=== PATIENT | male | born 1985 | race African-American/Black ===

== ENCOUNTER 2017-05-15 20:38 | Emergency (ER) | payer OTHER ==
[~2017-05-15] VITALS: Ht 167.6 cm; Wt 71.0 kg
[~2017-05-15 20:38] MED LIST: IBUP-1542 PO
[2017-05-15 20:46] VITALS: Ht 167.6 cm; Wt 71.0 kg
[2017-05-15] MEDS ORDERED: KETOROLAC 15 MG INJ IM STA (21:08)
--- NOTE | 2017-05-15 21:08 | ERD ---
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 Medications Home Meds Active Scripts Diazepam* (Valium*) 5 Mg Tablet, 5 MG PO Q8 for MUSCLE SPASMS, #10 TAB Prov:RICK,GEORGETTE 05/15/17 Naproxen* (Naprosyn*) 500 Mg Tablet, 500 MG PO BID Y for PAIN AND/OR INFLAMMATION, #10 TAB Prov:RICK,GEORGETTE 05/15/17 Ibuprofen* (Motrin*) 600 Mg Tab, 600 MG PO Q6, #20 TAB Prov:SARAH PACHECO PA-C 08/25/15 Allergies Allergies: Coded Allergies: No Known Allergy (Unverified , 01/22/15) PMhx/Soc History of Surgery: No Anesthesia Reaction: No Hx Neurological Disorder: No Hx Respiratory Disorders: Yes (asthma) Hx Cardiac Disorders: No Hx Psychiatric Problems: No Hx Miscellaneous Medical Probl: No Hx Alcohol Use: No Hx Substance Use: No Hx Tobacco Use: No Smoking Status: Never smoker Physical Exam Vitals Vitals stable, triage notes reviewed Physical Exam Const: Head: Atraumatic Eyes: Normal Conjunctiva ENT: Normal External Ears, Nose and Mouth. Neck: Full range of motion..~ No meningismus. Resp: Clear to auscultation bilaterally Cardio: Regular rate and rhythm, no murmurs Abd: Soft, non tender, non distended. Normal bowel sounds Skin: No petechiae or rashes Back: No midline or flank tenderness Ext: Lower Extremity -left hip: Skin: No laceration Compartments: Soft Motor: Straight leg rises positive at 30, pain with abduction and abduction, patient weightbearing at 50%, ambulating with limp. Sensation: [Intact to light touch All surfaces anterior, posterior and lateral Bones: Nontender pelvis/knee Joints: No effusion or laxity Pulses/Perfusion: 2+ DP, Capillary refill < 2 seconds Neur: Awake and alert Psych: Normal Mood and Affect Results 24 hrs Current Medications Medications (Trade) Dose Ordered Sig/Sukumar Route PRN Reason Start Time Stop Time Status Last Admin Dose Admin Ketorolac Tromethamine (Toradol) 15 mg ONCE STAT IM 05/15/17 21:08 05/15/17 21:17 DC 05/15/17 22:00 Diazepam (Valium) 5 mg ONCE ONCE PO 05/15/17 21:30 05/15/17 21:31 DC 05/15/17 22:00 Procedures/MDM PROCEDURE: Left hip. CLINICAL INDICATION: Pain. TECHNIQUE: Two views of the left hip were obtained. COMPARISON: None. FINDINGS: There is no fracture, dislocation or bone destruction. The joint spaces are within normal limits. Bone mineralization is within normal limits. There is no radiopaque foreign body or abnormal calcification. IMPRESSION: No evidence of fracture. .Jack Gifford MD, Date Time PROCEDURE: XR Pelvis. CLINICAL INDICATION: Pain. TECHNIQUE: Single AP view of the pelvis. COMPARISON: None. FINDINGS: There is no fracture, dislocation or bone destruction. The joint spaces are within normal limits. Bone mineralization is within normal limits. There is no radiopaque foreign body or abnormal calcification. IMPRESSION: No evidence of acute fracture. 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 presents to emergency department with left hip flexor pain patient unable to fully weight-bear, patient reports pain 2 weeks, patient reports he last stands 2 weeks ago denies any known injury or causative factors. I have little clinical suspicion for DVT, hip fracture, or erosive arthritis. Patient will be treated for pain with Toradol 15 mg intramuscularly and Valium 5 mg p.o. x-ray of pelvis and hip with radiologist's findings as follows: Left hip there is no fracture, dislocation or bone destruction. The joint spaces are within normal limits bone mineralization is within normal limits. There is no radiopaque foreign body or abnormal calcification. Departure Diagnosis: Primary Impression: Strain of flexor muscle of hip Encounter type: initial encounter Laterality: left Qualified Code: S76.012A - Strain of flexor muscle of left hip, initial encounter Condition: Good Patient Instructions: Muscle Strain, Extremity Referrals: [facility] Additional Instructions: Thank you for for coming to [facility] for your care today. Please ask your nurse or provider if you have questions about your care today and do not leave until all your questions have been answered. Please use any medications given as directed and follow-up with your doctor (or the doctor you were referred to) in the next 2-3 days. If you do not have a primary care doctor you may follow up at the [facility] (listed below). You may also use motrin and tylenol as needed for fever and/or pain unless instructed otherwise by your provider or nurse. Indications for more urgent follow-up have been discussed, but you may return to the Emergency Department at ANY time for any worrisome or worsening symptoms. If you have abdominal pain, please know that no test or exam you received is perfect and you should follow up within 8 hours for continued pain. If you had any imaging studies today, such as an X-Ray or CT Scan, these studies will be reviewed later by a radiologist. You will be called if there are important findings that were not identified today, so make sure the contact information you provided at registration is correct. If you received any narcotic pain control medicine today, such as Vicodin, Morphine or Dilaudid, your coordination and judgment may be affected for a number of hours. Please do not drive or operate heavy machinery, and you may want someone to assist you at home. If you were given a prescription for narcotic medication, be aware that it is very addictive- use sparingly and only if necessary. GEORGETTE CABRERA May 15, 2017 21:08 GEORGETTE CABRERA May 15, 2017 21:08
[2017-05-15] MEDS ORDERED: DIAZEPAM 5 MG TAB PO ONE (21:30)
--- NOTE | 2017-05-15 22:08 | RADRPT ---
PROCEDURE: XR Pelvis. CLINICAL INDICATION: Pain. TECHNIQUE: Single AP view of the pelvis. COMPARISON: None. FINDINGS: There is no fracture, dislocation or bone destruction. The joint spaces are within normal limits. Bone mineralization is within normal limits. There is no radiopaque foreign body or abnormal calcif ication. IMPRESSION: No evidence of acute fracture. .Jack Gifford MD, Date Time Electronically viewed and signed by .Jack Gifford MD, on 05/15/2017 22:07 .T/
--- NOTE | 2017-05-15 22:10 | RADRPT ---
PROCEDURE: Left hip. CLINICAL INDICATION: Pain. TECHNIQUE: Two views of the left hip were obtained. COMPARISON: None. FINDINGS: There is no fracture, dislocation or bone destruction. The joint spaces are within normal limits. Bone mineralization is within normal limits. There is no radiopaque foreign body or abnormal calcif ication. IMPRESSION: No evidence of fracture. .Jack Gifford MD, Date Time Electronically viewed and signed by .Jack Gifford MD, on 05/15/2017 22:09 .T/
[2017-05-15] MEDS ORDERED: NAPR-260 PO (23:34)
[2017-05-15] MEDS ORDERED: DIAZ-90 PO (23:34)
[2017-05-15 23:45] VITALS: BP 140/71; PULSE 70; RESP 20; TEMP 98.4
== END 2017-05-15 23:46 | disposition home or self-care (01) ==
LOC: FTE 20:38
DX: S76.012A Strain of muscle, fascia and tendon of left hip, initial encounter (principal); J45.909 Unspecified asthma, uncomplicated; X58.XXXA Exposure to other specified factors, initial encounter; Y92.9 Unspecified place or not applicable
CPT/HCPCS: 72170; 73510; 96372; J1885; Z7502; Z7610